=== PATIENT | female | born 1965 | race Caucasian/White ===

== ENCOUNTER 2018-04-18 11:44 | Emergency (ER) | payer OTHER ==
[~2018-04-18] VITALS: Ht 172.7 cm; Wt 66.2 kg
[2018-04-18 15:06] LABS: BASOPHILS # (AUTO) 0.04 x10^3/uL (0-0.1); BASOPHILS % (AUTO) 1 % (0-1); EOSINOPHILS # (AUTO) 0.17 x10^3/uL (0-0.4); EOSINOPHILS % (AUTO) 3 % (1-7); LYMPHOCYTES # (AUTO) 2.32 x10^3/uL (1-3.4); LYMPHOCYTES % (AUTO) 42 % (22-44); MD NO; MEAN CORPUSCULAR HEMOGLOBIN 33.3 pg (27.0-34.8); MEAN CORPUSCULAR HGB CONC 34.3 g/dL (32.4-35.8); MEAN PLATELET VOLUME 8.3 fL (7.4-10.4); MONOCYTES # (AUTO) 0.43 x10^3/uL (0.2-0.8); MONOCYTES % (AUTO) 8 % (2-9); NEUTROPHILS # (AUTO) 2.55 x10^3/uL (1.8-6.8); NEUTROPHILS % (AUTO) 46 % (42-75); PLATELET COUNT 268 x10^3/uL (130-400); RED BLOOD COUNT 4.29 x10^6/uL (3.82-5.3); RED CELL DISTRIBUTION WIDTH 13.6 % (9.6-15.2)
[2018-04-18 15:11] LABS: ALBUMIN 4.2 g/dL (3.4-5.0); ANION GAP 6 mmol/L (5-15); CHLORIDE 108 mmol/L (98-107)
[2018-04-18 15:17] LABS: ALANINE AMINOTRANSFERASE 29 U/L (12-78); ALKALINE PHOSPHATASE 64 U/L (45-117); BILIRUBIN,TOTAL 0.7 mg/dL (0.2-1.0); TOTAL PROTEIN 7.6 g/dL (6.4-8.2); TROPONIN I < 0.015 ng/mL (0.000-0.045)
[2018-04-18 15:42] LABS: INTERNATIONAL NORMALIZED RATIO 1.04 (0.93-1.1); PROTHROMBIN TIME 10.7 Seconds (9.6-11.5)
[2018-04-18 16:12] VITALS: BP 157/79
== END 2018-04-18 17:05 | disposition home or self-care (01) ==
LOC: ED 16:50
DX: R07.89 Other chest pain (principal); I10 Essential (primary) hypertension
CPT/HCPCS: 36415; 71045; 80053; 84484; 85025; 85610; 85730; 93005; 99285

== ENCOUNTER → 2018-05-20 | Outpatient (CLI) | payer OTHER | END | disposition home or self-care (01) | LOC: CARD 09:36 | PROVIDERS: ATTEND Internal Medicine | DX: R07.89 Other chest pain (principal); Z88.2 Allergy status to sulfonamides | CPT/HCPCS: 93017 ==

== ENCOUNTER → 2018-10-13 | Outpatient (CLI) | payer OTHER | END | disposition home or self-care (01) | LOC: CFH 08:20 | PROVIDERS: ATTEND Internal Medicine Cardiovascular Disease | DX: I10 Essential (primary) hypertension (principal); R07.89 Other chest pain | CPT/HCPCS: 78452; 93017; A9502 ==

== ENCOUNTER → 2018-11-10 | Outpatient (CLI) | payer OTHER | END | disposition home or self-care (01) | LOC: CFH 07:56 | PROVIDERS: ATTEND Internal Medicine Cardiovascular Disease | DX: I07.1 Rheumatic tricuspid insufficiency (principal); I10 Essential (primary) hypertension | CPT/HCPCS: 93306 ==